=== PATIENT | male | born 1985 | race Caucasian/White ===

== ENCOUNTER 2020-12-05 13:10 | Emergency (ER) | payer OTHER ==
[~2020-12-05 13:10] MED LIST: MEDROL 4MG DOSEP4 MG PO
[2020-12-05 16:48] LABS: BASOPHIL 0.6 % (0-2); EOSINOPHIL 1.5 % (0-5); HCT 45.8 % (42.0-52.0); HGB 14.6 g/dl (13.2-18.0); LYMPHOCYTE 33.1 % (15-48); MCH 29.7 pg (25.0-31.0); MCHC 31.9 g/dL (32.0-36.0); MCV 93.3 fL (78.0-100.0); MONOCYTE 9.8 % (0-12); MPV 8.4 fL (6.0-9.5); NEUTROPHIL 54.7 % (41-80); NRBC 0; PLT 288 K/uL (150-400); RBC 4.91 M/uL (4.70-6.00); RDW 14.2 % (11.5-14.0); WBC 6.5 K/uL (4.0-10.5)
[2020-12-05 17:08] LABS: CREATININE 0.91 mg/dL (0.67-1.17); POTASSIUM 4.1 mmol/L (3.5-5.1)
[2020-12-05 17:24] LABS: BILIRUBIN NEGATIVE (NEGATIVE); BLOOD NEGATIVE Ery/uL (NEGATIVE); CLARITY CLEAR (CLEAR); COLOR YELLOW (YELLOW); GLUCOSE (U) NORMAL (NORMAL); LEUKOCYTES NEGATIVE Leu/uL (NEGATIVE); NITRITE NEGATIVE (NEGATIVE); PROTEIN NEGATIVE (NEGATIVE); SPECIFIC GRAVITY 1.015 (1.001-1.030); UROBILINOGEN 0.2 mg/dL (0.2-1.0)
== END 2020-12-05 17:46 | disposition home or self-care (01) ==
LOC: FER 13:10
PROVIDERS: Nurse Practitioner Family
DX: R21 Rash and other nonspecific skin eruption (principal); M25.569 Pain in unspecified knee; J45.909 Unspecified asthma, uncomplicated; F17.210 Nicotine dependence, cigarettes, uncomplicated; Z86.19 Personal history of other infectious and parasitic diseases
CPT/HCPCS: 36415; 80048; 81003; 85025; 99283

== ENCOUNTER 2021-07-30 19:33 | Emergency (ER) | payer OTHER ==
[2021-07-30 20:12] LABS: BILIRUBIN NEGATIVE (NEGATIVE); BLOOD NEGATIVE Ery/uL (NEGATIVE); CLARITY CLEAR (CLEAR); COLOR YELLOW (YELLOW); GLUCOSE (U) NORMAL (NORMAL); LEUKOCYTES NEGATIVE Leu/uL (NEGATIVE); NITRITE NEGATIVE (NEGATIVE); PROTEIN NEGATIVE (NEGATIVE); SPECIFIC GRAVITY 1.015 (1.001-1.030); UROBILINOGEN 0.2 mg/dL (0.2-1.0)
[2021-07-30] MEDS ORDERED: MEDROL 4MG DOSEP4 MG PO (20:33)
[2021-07-30] MEDS ORDERED: CYCLOBENZAPRINE10 MG PO (20:33)
== END 2021-07-30 21:25 | disposition home or self-care (01) ==
LOC: FER 19:33
PROVIDERS: Nurse Practitioner Family
DX: M54.42 Lumbago with sciatica, left side (principal); M54.41 Lumbago with sciatica, right side; J45.909 Unspecified asthma, uncomplicated
CPT/HCPCS: 81003; 96372; 99283; J1100; J1885

== ENCOUNTER 2021-12-22 16:24 | Emergency (ER) | payer OTHER ==
[~2021-12-22 16:24] MED LIST changes: +CYCLOBENZAPRINE10 MG PO
[2021-12-22 17:06] LABS: BILIRUBIN 1+ mg/dL (NEGATIVE); BLOOD 3+ Ery/uL (NEGATIVE); CLARITY CLEAR (CLEAR); COLOR YELLOW (YELLOW); GLUCOSE (U) NORMAL (NORMAL); LEUKOCYTES 2+ Leu/uL (NEGATIVE); NITRITE NEGATIVE (NEGATIVE); PROTEIN 2+ mg/dL (NEGATIVE); SPECIFIC GRAVITY >=1.030 (1.001-1.030); UROBILINOGEN 0.2 mg/dL (0.2-1.0)
[2021-12-22 17:10] LABS: BACTERIA TRACE; URINARY RBC TNTC
[2021-12-22] MEDS ORDERED: BACTRIM DS TAB1 EACH PO (17:40)
[2021-12-24 22:08] LABS: CHLAMYDIA TRACHOMATIS, NAA Negative (Negative); NEISSERIA GONORRHOEAE, NAA Negative (Negative)
== END 2021-12-22 17:55 | disposition home or self-care (01) ==
LOC: FER 16:24
PROVIDERS: Nurse Practitioner Family
DX: N39.0 Urinary tract infection, site not specified (principal); J45.909 Unspecified asthma, uncomplicated; F17.210 Nicotine dependence, cigarettes, uncomplicated
CPT/HCPCS: 81001; 87088; 87491; 87591; 99283